=== PATIENT | female | born 1965 | race Caucasian/White ===

== ENCOUNTER 2017-12-25 08:17 | Inpatient (IN) | payer BC, OTHER ==
[~2017-12-25] VITALS: Ht 184.8 cm; Wt 106.1 kg
[2017-12-25] MEDS ORDERED: KETOROLAC TROMETHAMINE 30 MG/ML VIAL IV STA (08:38)
[2017-12-25 08:47] LABS: BASOPHILS # (AUTO) 0.1 (0.0-0.1); BASOPHILS % 0.8 % (0.0-1.0); EOSINOPHILS # (AUTO) 0.2 (0.0-0.4); EOSINOPHILS % 2.6 % (0.0-6.0); HEMATOCRIT 41.9 % (34.2-44.1); HEMOGLOBIN 13.7 g/dL (12.0-16.0); LYMPHOCYTES # (AUTO) 1.9 (1.0-3.2); LYMPHOCYTES % 26.4 % (18.0-39.1); MEAN CORPUSCULAR HEMOGLOBIN 30.8 pg (28-32); MEAN CORPUSCULAR HGB CONC 32.7 g/dL (31-35); MEAN CORPUSCULAR VOLUME 94.2 fL (81-99); MONOCYTES # (AUTO) 0.4 (0.2-0.8); NEUTROPHILS # (AUTO) 4.8 (2.1-6.9); NEUTROPHILS % 64.8 % (38.7-80.0); PLATELET COUNT 248 x10e3/uL (140-360); RED BLOOD COUNT 4.45 x10e6/uL (3.6-5.1); RED CELL DISTRIBUTION WIDTH 13.2 % (11.7-14.4)
[2017-12-25 08:53] LABS: CLARITY,URINE SL CLOUDY (CLEAR); COLOR,URINE YELLOW (YELLOW); LEUKOCYTE ESTERASE ,URINE NEGATIVE (NEGATIVE); NITRITE,URINE NEGATIVE (NEGATIVE); PROTEIN,URINE DIPSTICK NEGATIVE (NEGATIVE)
[2017-12-25 08:54] LABS: BILIRUBIN,URINE NEGATIVE (NEGATIVE); KETONES,URINE NEGATIVE (NEGATIVE); URINE UROBILINOGEN 0.2 mg/dL (0.2 - 1)
[2017-12-25 09:00] LABS: ALANINE AMINOTRANSFERASE 24 IU/L (0-55); ALBUMIN 3.7 g/dL (3.5-5.0); ALKALINE PHOSPHATASE 73 IU/L (40-150); AMYLASE 117 U/L (25-125); BLOOD UREA NITROGEN 11 mg/dL (7-26); BUN/CREATININE RATIO 15 (6-25); CALCIUM 9.1 mg/dL (8.4-10.2); CARBON DIOXIDE 27 mmol/L (22-29); CHLORIDE 103 mmol/L (98-107); CREATINE KINASE 144 IU/L (29-168); CREATININE, SERUM 0.75 mg/dL (0.57-1.11); EST GLOMERULAR FILTRATION RATE > 60 ML/MIN (60-); GLUCOSE 99 mg/dL (74-118); LIPASE 243 U/L (8-78); RBC,URINE 0-5 /HPF (0-5); SODIUM 136 mmol/L (136-145); WBC,URINE (MAN) 0-5 /HPF (0-5)
[2017-12-25 09:01] LABS: EPITHELIAL CELLS,URINE MANY /LPF
[2017-12-25] MEDS: ONDANSETRON HCL INJ 2 MG/ML VIAL IV STA ×2 (09:09→09:38)
[2017-12-25] MEDS ORDERED: HYDROMORPHONE 1MG/1ML INJ IV SCH (09:20)
[2017-12-25] MEDS ORDERED: DIATRIZOATE MEGL/DIATRIZOA SOD 30 ML BTL PO ONE (09:47)
[2017-12-25] MEDS ORDERED: SODIUM CHLORIDE 0.9% 50ML 50 ML ONE (11:08)
[2017-12-25] MEDS ORDERED: IOPAMIDOL 370 MG/ML 200 ML INFUS..BTL INJ ONE (11:08)
[2017-12-25] MEDS ORDERED: D5.45%NS/KCL 20MEQ 1,000 ML IV SCH (11:18)
[2017-12-25] MEDS ORDERED: ONDANSETRON HCL INJ 2 MG/ML VIAL IV PRN ×2 (11:30→18:00)
[2017-12-25] MEDS ORDERED: HYDROMORPHONE 1MG/1ML INJ IV PRN (11:30)
--- NOTE | 2017-12-25 11:37 | Diagnostic Imaging Report ---
EXAM: CT Abdomen and Pelvis WITH contrast INDICATION: Pain COMPARISON: None. TECHNIQUE: Abdomen and Pelvis was scanned utilizing a multidetector helical scanner after administration of IV contrast. Coronal and sagittal reformations were obtained. IV CONTRAST: 100 mL Isovue-370 COMPLICATIONS: None RADIATION DOSE: Total DLP:854 mGy*cm Estimated effective dose: (DLP x 0.015 x size factor) mSv CTDIvol has been reviewed. It is below the limits set by the Radiation Protocol Committee (RPC). FINDINGS: Abdomen: Lung Bases: No acute findings. Solid Organs: Liver, adrenals, kidneys, and spleen unremarkable. Pancreas normally enhances. Calcifications are present within the pancreatic head, not further localized. No peripancreatic fluid collection. Upper GI Tract: Mild inflammation present about the second and third portion of the duodenum/pancreatic head. Vascularity: No aortic aneurysm. Lymph Nodes: No suspicious adenopathy. Other: None. Pelvis: Bladder: Unremarkable. Other: Within limitations of CT, uterus/adnexa unremarkable. Colon: Diverticula sigmoid colon without CT evidence of diverticulitis. Bones: No acute findings. IMPRESSION: 1. Inflammatory changes in the region of the pancreatic head and second/third portions of the duodenum. Pancreatitis or duodenitis could have this appearance. Clinical and laboratory correlation recommended. 2. Calcifications pancreatic head, with no comparisons. While findings may simply represent dystrophic calcifications, choledocholithiasis not excluded. Clinical and laboratory correlation for biliary obstruction recommended. 3. Other findings as above. Signed by: Dr. Kirk Tavares MD on 12/25/2017 11:33 AM
--- OUTSIDE RECORDS SUMMARY | 2017-12-25 11:44 | XMS REPORT ---
Author Author [facility] Address Unknown Phone Unavailable Care Team Providers Care Transformation Architect Name Role Phone RENATO FARMER Unavailable Unavailable Problems This patient has no known problems. Allergies, Adverse Reactions, Alerts This patient has no known allergies or adverse reactions. Medications This patient has no known medications. Results Test Description Test Time Test Comments Text Results Atomic Results Result Comments CT ABDOMEN/PELVIS W [place] [address] Patient Name: CHARLES GOLDMAN MR #: [id number] : 1965 Age/Sex: 52/F Req # : [id number] Adm Physician: Ordered by: RENATO FARMER MD Report #: [id number] Location: ER Room/Bed: Procedure: [id number] CT/CT ABDOMEN/PELVIS W Exam Date: 12/25/17 Exam Time : 1113 REPORT STATUS: Signed EXAM: CT Abdomen and Pelvis WITH contrast INDICATION: Pain COMPARISON: None. TECHNIQUE: Abdomen and Pelvis was scanned utilizing a multidetector helical scanner after administration of IV contrast. Coronal and sagittal reformations were obtained. IV CONTRAST: 100 mL Isovue-370 COMPLICATIONS: None RADIATION DOSE: Total DLP:854 mGy*cm Estimated effective dose: (DLP x 0.015 x size factor) mSv CTDIvol has been reviewed. It is below the limits set by the Radiation Protocol Committee (RPC). FINDINGS: Abdomen: Lung Bases: No acute findings. Solid Organs: Liver, adrenals, kidneys, and spleen unremarkable. Pancreas normally enhances. Calcifications are present within the pancreatic head, not further localized. No peripancreatic fluid collection. Upper GI Tract: Mild inflammation present about the second and third portion of the duodenum/ pancreatic head. Vascularity: No aortic aneurysm. Lymph Nodes: No suspicious adenopathy. Other: None. Pelvis: Bladder: Unremarkable. Other: Within limitations of CT, uterus/adnexa unremarkable. Colon: Diverticula sigmoid colon without CT evidence of diverticulitis. Bones: No acute findings. IMPRESSION: 1. Inflammatory changes in the region of the pancreatic head and second/third portions of the duodenum. Pancreatitis or duodenitis could have this appearance. Clinical and laboratory correlation recommended. 2. Calcifications pancreatic head, with no comparisons. While findings may simply represent dystrophic calcifications, choledocholithiasis not excluded. Clinical and laboratory correlation for biliary obstruction recommended. 3. Other findings as above. Signed by: Dr. Kirk Johnson MD on 12/25/2017 11:33 AM Dictated By: KIRK JOHNSON MD 1133 Transcribed By: AMBER on 12/25/17 1133 COPY TO: RENATO FARMER MD
--- OUTSIDE RECORDS SUMMARY | 2017-12-25 11:44 | XMS REPORT | Clinical Summary ---
Author Author [facility] Address Unknown Phone Unavailable Care Team Providers Care Client Service Consultant Name Role Phone Feliz Griffin MD PCP Allergies Not on File Current Medications Not on file Active Problems Not on file Encounters Date Type Specialty Care Team Description 11/11/2017 Transcribe Access Catarino Bey MD Screening breast Orders examination (Primary Dx) after 12/24/2016 Social History Tobacco Use Types Packs/Day Years Used Date Never Assessed Sex Assigned at Date Recorded Not on file Last Filed Vital Signs Not on file Plan of Treatment Date Type Specialty Care Team Description 12/30/2017 Appointment Radiology Catarino Bey MD [address] [id number] Health Maintenance Due Date Last Done Comments PAP SMEAR 1984 COLONOSCOPY 2013 INFLUENZA VACCINE 04/12/2018 MAMMOGRAM 12/21/2018 12/21/2016, 12/19/2015, 12/18/2014, Additional history exists Results Not on fileafter 12/24/2016 Insurance Payer Benefit Subscriber ID Type Phone Address Plan / Group CIG[employer] CIGNA xxxxxxxxx HMO/PPO [id number] Work: [id number] [place], [place] Home: [phone]
--- NOTE | 2017-12-25 11:53 | Consultation ---
DATE OF CONSULTATION: December 25, 2017 GASTROENTEROLOGY CONSULTATION HISTORY OF PRESENT ILLNESS: This is a 52-year-old who is very well known to me, who called me earlier today because of sudden onset of significant or severe abdominal pain. Patient also has some diarrhea along with the problem. She denies any nausea or vomiting with this problem, and her workup so far revealed that her CBC was okay. Her chemistry, however, showed the lipase is 243. She denies any history of alcohol use. OTHER MEDICAL PROBLEMS: Otherwise really unremarkable. ALLERGIES: NONE. SOCIAL HISTORY: Denies any alcohol use. FAMILY HISTORY: Noncontributory. REVIEW OF SYSTEMS: Denies any chest pain. No shortness of breath. Denies any dysphagia or odynophagia. Denies any dysuria, hematuria, or any kind of syncopal episode. PHYSICAL EXAMINATION GENERAL: The patient is awake, alert, appears to be stable. Not in acute distress at this point. VITAL SIGNS: Afebrile currently with stable vital signs. HEAD, EYES, EARS, NOSE AND THROAT: Normocephalic and atraumatic. Sclera is anicteric. NECK: Supple. HEART: Exam is regular. LUNGS: Clear. ABDOMEN: Soft. There is tenderness in the epigastric area. There is no rebound or mass. EXTREMITIES: No cyanosis, no clubbing. LAB VALUES: Again, CBC is okay. Chemistry is okay except lipase was 243. IMPRESSION: Abdominal pain. Patient also has some diarrhea. at this point. Rule out possibility of pancreatitis. RECOMMENDATIONS: Keep n.p.o. IV fluid as well as pain control. Follow labs and clinically. Await CAT scan. Job#: [id number] EV cc:DAMASO SHEPPARD M.D.
[2017-12-25 14:21] VITALS: BP 125/67
[2017-12-25] MEDS ORDERED: LEVOTHYROXINE25 MCG PO (14:27)
[2017-12-25] MEDS ORDERED: AMITIZA24 MCG PO (14:27)
[2017-12-25] MEDS ORDERED: ULTRAM50 MG PO (14:27)
[2017-12-25] MEDS ORDERED: ACETAMINOPHEN 325 MG TAB PO PRN (15:30)
[2017-12-25] MEDS: ENOXAPARIN SOD INJ 40 MG/0.4 ML SYR SC SCH (16:05)
[2017-12-25] MEDS: D5NS/KCL 20MEQ 1,000 ML IV SCH (17:26)
[2017-12-25 19:37] VITALS: BP 125/67
--- NOTE | 2017-12-25 19:56 | Diagnostic Imaging Report ---
EXAM: US GALLBLADDER INDICATION: Acute pancreatitis COMPARISON: None TECHNIQUE: Transverse and longitudinal sonographic images of the right upper abdomen were obtained. FINDINGS: LIVER: 17 cm in the right midclavicular line. Increased echogenicity, normal contour, no masses. Main Portal Vein: Normal size with hepatopetal flow. GALLBLADDER: No stones, sludge, wall-thickening or pericholecystic fluid. Negative sonographic Fletcher's sign. BILE DUCTS: No intra nor extra-hepatic dilation. Common bile duct measures 1.1 cm. PANCREAS: Visualized portions are normal. RIGHT KIDNEY: 13.3 x 4.6 x 5 cm in length Echogenicity: Normal Collecting System: No hydronephrosis Stones: None Cyst/Mass: None FREE FLUID: None in the right upper quadrant of the abdomen IMPRESSION: 1. No cholelithiasis. 2. Mild hepatomegaly and mild hepatic steatosis. Signed by: Dr. Supriya Vo M.D. on 12/25/2017 7:52 PM
[2017-12-25 20:00] VITALS: BP 134/83
[2017-12-25 21:27] VITALS: BP 134/83
[2017-12-26] VITALS (7 sets, daily range): BP systolic 117–154; BP diastolic 70–89
[2017-12-26] MEDS: D5NS/KCL 20MEQ 1,000 ML IV SCH ×2 (01:15→06:24)
[2017-12-26 07:21] LABS: BASOPHILS % 0.4 % (0.0-1.0); EOSINOPHILS # (AUTO) 0.1 (0.0-0.4); HEMATOCRIT 38.9 % (34.2-44.1); HEMOGLOBIN 12.8 g/dL (12.0-16.0); LYMPHOCYTES # (AUTO) 1.6 (1.0-3.2); LYMPHOCYTES % 19.2 % (18.0-39.1); MEAN CORPUSCULAR HEMOGLOBIN 31.1 pg (28-32); MEAN CORPUSCULAR HGB CONC 32.9 g/dL (31-35); MEAN CORPUSCULAR VOLUME 94.6 fL (81-99); MONOCYTES # (AUTO) 0.5 (0.2-0.8); MONOCYTES % 5.8 % (4.4-11.3); NEUTROPHILS # (AUTO) 5.9 (2.1-6.9); NEUTROPHILS % 73.1 % (38.7-80.0); PLATELET COUNT 249 x10e3/uL (140-360); RED BLOOD COUNT 4.11 x10e6/uL (3.6-5.1); RED CELL DISTRIBUTION WIDTH 13.2 % (11.7-14.4)
[2017-12-26] MEDS: LEVOTHYROXINE SODIUM 25 MCG TABLET PO SCH (07:30)
[2017-12-26 07:54] LABS: ALANINE AMINOTRANSFERASE 21 IU/L (0-55); ALBUMIN 3.5 g/dL (3.5-5.0); ALKALINE PHOSPHATASE 65 IU/L (40-150); AMYLASE 70 U/L (25-125); ANION GAP 9.6 mmol/L (8-16); BLOOD UREA NITROGEN 8 mg/dL (7-26); BUN/CREATININE RATIO 11 (6-25); CALCIUM 8.9 mg/dL (8.4-10.2); CARBON DIOXIDE 27 mmol/L (22-29); CHLORIDE 104 mmol/L (98-107); CREATININE, SERUM 0.71 mg/dL (0.57-1.11); EST GLOMERULAR FILTRATION RATE > 60 ML/MIN (60-); GLUCOSE 94 mg/dL (74-118); LIPASE 91 U/L (8-78); POTASSIUM 3.6 mmol/L (3.5-5.1); SODIUM 137 mmol/L (136-145)
[2017-12-26] MEDS ORDERED: ACETAMINOPHEN 1000 MG/100 ML IV PRN (08:00)
--- NOTE | 2017-12-26 08:09 | History and Physical ---
CHIEF COMPLAINT: Abdominal pain. HPI: This is a 52-year-old female, morbidly obese with multiple GI history, who comes into the ED with complaints of epigastric abdominal pain that radiates straight through her back. She reports that the pain began yesterday after jogging. She went home and noticed that she had severe abdominal pain, and was trying to take Tylenol with no relief. Overnight, she continued to have significant abdominal pain and came into the ED for further evaluation. She has been having some decreased oral intake, some nausea. No vomiting but some diarrhea. On arrival here, imaging studies were consistent with acute pancreatitis, as well as elevated lipase levels. The patient was seen and evaluated at the bedside on the medical floor. Currently, doing well with no other issues. MRCP and right upper quadrant ultrasound has been ordered. GI has been consulted and already evaluated her. REVIEW OF SYSTEMS: Pertinent positives are epigastric abdominal pain that radiates through her back, nausea, decreased oral intake. Pertinent negatives: Denies any chest pain, palpitations, vomiting, dysuria, hematuria, frequency, urgency, lightheadedness, dizziness, headaches, shortness of breath, or any other complaints. The rest of the 14-point review of systems have been reviewed with the patient and are negative. ALLERGIES: NO KNOWN DRUG ALLERGIES. HOME MEDICATIONS: She is on: 1. Levothyroxine 25 mcg daily. 2. Amitiza 24 mcg p.o. b.i.d. 3. Tramadol 50 mg p.o. q.6 h. p.r.n. abdominal pain. PAST MEDICAL HISTORY: She has had hemorrhoids in the past. She has had chronic abdominal pain, irritable bowel syndrome, on medications. SURGICAL HISTORY: She had hemorrhoid surgery times 3. FAMILY HISTORY: Hypertension and diabetes. SOCIAL HISTORY: No drugs. No alcohol. Does not smoke. Currently working. PHYSICAL EXAMINATION VITAL SIGNS: Temperature is 98.4, pulse 55, respiratory rate 16, blood pressure 125/67, pulse ox 100% on room air. GENERAL: Not in acute distress. Alert and oriented times 3 and cooperative on exam. HEENT: Head is normocephalic and atraumatic. Eyes: Pupils equal, round and reactive to light bilaterally. Extraocular movements intact bilaterally. NECK: Supple. Good range of motion. Throat with no evidence of any erythema or airway disease in the posterior pharynx. Has poor dentition. PULMONARY: Clear to auscultation bilaterally. No wheezing. No rales. No rhonchi can be appreciated. CARDIOVASCULAR: S1 and S2. No murmurs, rubs or gallops. ABDOMEN: Soft. Tender to palpation in the epigastric region radiating through to her back. Positive bowel sounds. No rebound. No guarding. Tender to palpation on exam. MUSCULOSKELETAL: Strength is 5/5 throughout on musculoskeletal on examination. No weakness appreciated. NEUROLOGIC: Cranial nerves II-XII are grossly intact. No evidence of any neurologic deficit on exam. SKIN: Intact. Warm to touch. Good cap refill. PSYCHIATRIC: Normal affect and mood. EXTREMITIES: No edema. Good range of motion throughout. LAB FINDINGS: Show a white count of 7.3, hemoglobin 13.7, hematocrit 41.9, and platelets are 248,000. Chemistry: Sodium 136, potassium 4, chloride 103, bicarb 27, anion gap of 10, BUN 11, creatinine 0.75, calcium 9.1, glucose 99. LFTs were normal. Her troponin was negative. Total protein 7.5, albumin 3.7, lipase 243, amylase is 117. Urinalysis was negative. IMAGING STUDIES: CT of the abdomen and pelvis with IV contrast showed an impression of inflammatory changes in the region of the pancreatic head and 2nd and 3rd portions of the duodenum. Pancreatitis or duodenitis could have this appearance. There is some calcifications in the pancreatic head with no comparison. IMPRESSION 1. Acute pancreatitis: Etiology multifactorial. Could be secondary to choledocholithiasis. 2. Irritable bowel syndrome. 3. Abdominal pain. 4. Decreased oral intake. 5. Nausea, vomiting and dehydration. PLAN: At this time, keep the patient n.p.o. Pain control. IV fluids. Antinausea medications. CT of the abdomen and pelvis results above. MRCP and right upper quadrant ultrasound is pending. GI has been consulted and awaiting for further evaluation on imaging studies. Will resume her home medications that she takes at home. Otherwise, will continue with n.p.o., IV fluids and pain control, and await for final recommendations based on imaging studies. Job#: [id number] ID
[2017-12-26] MEDS: PANTOPRAZOLE 40 MG 10ML VIAL IV SCH (08:50)
--- NOTE | 2017-12-26 12:18 | Diagnostic Imaging Report ---
PROCEDURE: MRCP WITHOUT CONTRAST TECHNIQUE: Multisequence multiplanar MRI and MRCP images were obtained of the upper abdomen without IV contrast. COMPARISON: CT and ultrasound 12/25/2017 INDICATIONS: Abdomen pain FINDINGS: LACK OF GADOLINIUM DECREASES SENSITIVITY FOR DETECTION OF INTRA-ABDOMINAL PATHOLOGY. LIVER: Signal loss on the [id number] images compatible with hepatic steatosis. Liver is mildly enlarged measuring 18.4 cm in length. No focal hepatic lesions. BILIARY: No ductal dilatation or filling defect. PANCREAS: Fatty infiltration/atrophy in the head. Previously noted peripancreatic stranding is not well visualized. No mass or ductal dilatation. A punctate T2 hypointense focus in the uncinate process likely corresponds to the calcifications on CT. These appear more medial than the CBD (best seen on coronal 2D FIESTA series 9 image 22) and thus likely within the parenchyma. SPLEEN: No splenomegaly. ADRENALS: No nodules. KIDNEYS: No hydronephrosis or mass in the imaged portion of the kidneys. PERITONEUM / RETROPERITONEUM: No upper abdominal free fluid. LYMPH NODES: No upper abdominal lymphadenopathy. VESSELS: Unremarkable. BONES AND SOFT TISSUES: Unremarkable. IMPRESSION: 1. No evidence of choledocholithiasis. Previously noted calcifications are likely dystrophic calcifications within the pancreatic parenchyma. 2. Hepatic steatosis and hepatomegaly. Dictated by: Royal Pfeiffer M.D. on 12/26/2017 at 12:19 Electronically approved by: Royal Pfeiffer M.D. on 12/26/2017 at 12:19
[2017-12-26] MEDS ORDERED: MORPHINE SULFATE 2 MG/ML SYR IV PRN (16:30)
[2017-12-26] MEDS ORDERED: MORPHINE SULFATE 4 MG/ML SYR IV PRN (16:30)
[2017-12-26] MEDS: ENOXAPARIN SOD INJ 40 MG/0.4 ML SYR SC SCH (17:19)
[2017-12-26] MEDS ORDERED: IBUPROFEN 600 MG TAB PO PRN (18:15)
[2017-12-26] MEDS: TRAMADOL HCL 50 MG TAB PO PRN (18:33)
[2017-12-26] MEDS ORDERED: ZOLPIDEM TARTRATE 10 MG TAB PO SCH (22:00)
[2017-12-27] VITALS: BP 112/59
[2017-12-27 01:21] VITALS: BP 112/59
[2017-12-27 04:00] VITALS: BP 144/70
[2017-12-27] MEDS: TRAMADOL HCL 50 MG TAB PO PRN (06:00)
[2017-12-27 06:50] LABS: BASOPHILS % 0.5 % (0.0-1.0); EOSINOPHILS # (AUTO) 0.1 (0.0-0.4); EOSINOPHILS % 1.8 % (0.0-6.0); HEMATOCRIT 38.8 % (34.2-44.1); HEMOGLOBIN 12.5 g/dL (12.0-16.0); LYMPHOCYTES # (AUTO) 1.4 (1.0-3.2); LYMPHOCYTES % 22.2 % (18.0-39.1); MEAN CORPUSCULAR HEMOGLOBIN 30.4 pg (28-32); MEAN CORPUSCULAR HGB CONC 32.2 g/dL (31-35); MEAN CORPUSCULAR VOLUME 94.4 fL (81-99); MONOCYTES # (AUTO) 0.4 (0.2-0.8); MONOCYTES % 5.7 % (4.4-11.3); NEUTROPHILS # (AUTO) 4.2 (2.1-6.9); NEUTROPHILS % 69.3 % (38.7-80.0); PLATELET COUNT 232 x10e3/uL (140-360); RED BLOOD COUNT 4.11 x10e6/uL (3.6-5.1)
[2017-12-27 07:17] LABS: ANION GAP 12.9 mmol/L (8-16); BLOOD UREA NITROGEN 8 mg/dL (7-26); BUN/CREATININE RATIO 11 (6-25); CALCIUM 9.2 mg/dL (8.4-10.2); CARBON DIOXIDE 26 mmol/L (22-29); CHLORIDE 106 mmol/L (98-107); CHOL/HDL RATIO 4.4 (3.0-3.6); CHOLESTEROL 167 MD/DL (0-199); CREATININE, SERUM 0.76 mg/dL (0.57-1.11); EST GLOMERULAR FILTRATION RATE > 60 ML/MIN (60-); GLUCOSE 98 mg/dL (74-118); HDL CHOLESTEROL 38 MG/DL (40-60); LDL CHOLESTEROL 95 MG/DL (60-130); LIPASE 86 U/L (8-78); POTASSIUM 3.9 mmol/L (3.5-5.1); SODIUM 141 mmol/L (136-145); TRIGLYCERIDES 171 MG/DL (0-149)
[2017-12-27 08:00] VITALS: BP 113/65
[2017-12-27] MEDS: PANTOPRAZOLE 40 MG 10ML VIAL IV SCH (08:05)
[2017-12-27] MEDS: LEVOTHYROXINE SODIUM 25 MCG TABLET PO SCH (08:05)
[2017-12-27 08:14] VITALS: BP 113/65
[2017-12-27 12:06] VITALS: BP 158/38
--- NOTE | 2017-12-27 16:29 | Discharge Summary ---
DISCHARGE DIAGNOSIS: 1. Acute pancreatitis. 2. Nausea, vomiting, dehydration--resolved. 3. History of irritable bowel syndrome. CONSULTANTS: GI. VITAL SIGNS: Temperature is 97.6, pulse 58, respiratory rate is 18, blood pressure 113/65, pulse ox 99% on room air. LAB FINDINGS: Show white count 6, hemoglobin of 12.5, hematocrit is 38, and platelets of 232. Chemistry: Sodium 141, potassium 3.9, chloride is 106, bicarb 26, BUN is 8, creatinine is 0.7, glucose 98. Hemoglobin A1c 5.1. Troponin is negative. Albumin was 3.5. Triglyceride is 171, LDL was 95, HDL 38. Lipase on admission 243 downtrended to 86, and amylase is 75. Urinalysis was negative. MICROBIOLOGY: None. IMAGING STUDIES: Right upper quadrant ultrasound showed no evidence of cholelithiasis. It showed some mild hepatomegaly and mild hepatic steatosis. Gallbladder was normal with no evidence of stones. CT abdomen and pelvis showed inflammation changes in the region of the pancreatic head, 2nd and 3rd portions of the duodenum. Pancreatitis with duodenitis it looks to be appearing. There are calcifications in the pancreatic head. MRCP, no evidence of choledocholithiasis. Previously noted calcifications are likely dystrophic palpitations within the pancreatic parenchyma and hepatic steatosis hepatomegaly. HOSPITAL COURSE: This is a 52-year-old female who came into the ED with complaints of abdominal pain acutely with nausea, vomiting, dehydration and decreased oral intake. Patient was found to have elevated lipase with imaging studies consistent with acute pancreatitis. GI was consulted. MRCP, CT abdomen and pelvis, as well as right upper quadrant ultrasound results described above. Patient was on IV fluids, pain control and n.p.o. initially, then started on a clear liquid diet advanced as tolerated. Patient improved throughout the hospital course with no other issues. Per GI, patient has been cleared for discharge home and needs to follow up with him in his office in the next 1 week for further evaluation and likely will need endoscopic ultrasound of the pancreas. On discharge the patient's pain is resolved, no more nausea, vomiting or dehydration. She is tolerating diet well. On the day of discharge, vital signs stable, labs reviewed and stable. Patient seen and evaluated, examined thoroughly on the day of discharge with no other complaints. Patient verbalized understanding and agrees with plan of care to follow up accordingly as an outpatient with the GI specialist in the next 1 to 2 weeks for further evaluation and PCP in 1 week. DISCHARGE MEDICATIONS: See med reconciliation form. DISPOSITION: To home. CONDITION: Stable. DIET: Heart-healthy. FOLLOWUP: With GI in the next 1 to 2 weeks for further evaluation of the pancreas with endoscopic ultrasound, PCP in 1 week. In the event of any worsening symptoms, patient advised to come back to the ED for further evaluation. Discharge summary took greater than 35 minutes. SOPHIE MELGAR MD Job#: [id number] MITZI
== END 2017-12-27 12:01 | disposition home or self-care (01) | DRG 440 ==
LOC: ER 08:19 → ERHOLD 11:41 → MED/SURG2 13:26
PROVIDERS: ADMIT Internal Medicine; ATTEND Internal Medicine
DX: K85.10 Biliary acute pancreatitis without necrosis or infection (principal); K76.0 Fatty (change of) liver, not elsewhere classified; E66.01 Morbid (severe) obesity due to excess calories; K58.9 Irritable bowel syndrome, unspecified; E86.0 Dehydration; Z68.31 Body mass index [BMI] 31.0-31.9, adult
CPT/HCPCS: 36415; 74177; 74181; 76705; 80048; 80053; 80061; 81001; 82150; 82550; 82553; 83036; 83690; 84484; 85025; 93005; 99284; J1170; J1650; J1885; J2405; Q9967

== ENCOUNTER 2018-01-02 21:10 | Emergency (ER) | payer OTHER ==
[~2018-01-02] VITALS: Ht 184.8 cm; Wt 106.1 kg
[~2018-01-02 21:10] MED LIST: AMITIZA24 MCG PO; LEVOTHYROXINE25 MCG PO; ULTRAM50 MG PO
--- OUTSIDE RECORDS SUMMARY | 2018-01-02 21:12 | XMS REPORT | Clinical Summary ---
Author Author [facility] Address Unknown Phone Unavailable Care Team Providers Care Clinical Educator Name Role Phone Feliz Griffin MD PCP Allergies Not on File Current Medications Not on file Active Problems Not on file Encounters Date Type Specialty Care Team Description 12/30/2017 Hospital Radiology Catarino Bey MD Screening breast Encounter examination 11/11/2017 Transcribe Access Catarino Bey MD Screening breast Orders examination (Primary Dx) after 01/01/2017 Social History Tobacco Use Types Packs/Day Years Used Date Never Assessed Sex Assigned at Date Recorded Not on file Last Filed Vital Signs Not on file Plan of Treatment Health Maintenance Due Date Last Done Comments PAP SMEAR 1984 COLONOSCOPY 2013 INFLUENZA VACCINE 04/12/2018 MAMMOGRAM 12/21/2018 12/21/2016, 12/19/2015, 12/18/2014, Additional history exists Results * Mammo Breast Screen Tomosynthesis Bilateral (12/30/2017 2:34 PM) Specimen Performing Laboratory [facility] [id number] [place] [address] Narrative PROCEDURE: MAMMO BREAST SCREEN TOMOSYNTHESIS BILATERAL Computer aided detection was utilized for the interpretation of the digital bilateral screening mammography with tomosynthesis. COMPARISON: 12/21/2016-12/17/2013 CLINICAL HISTORY: Screening mammogram.The patient has no current breast complaints. DENSITY: There are scattered areas of fibroglandular density. No significant masses, calcifications, or other findings are seen in either breast. There has been no significant interval change. IMPRESSION:No mammographic evidence of malignancy. RECOMMENDATION: Comparison with physical exam and annual screening mammography. BI-RADS 1:NEGATIVE This facility is accredited by the [employer] for Mammography. A negative x-ray report should not delay biopsy if a dominant or clinically suspicious mass is present.Not all cancers are identified by x-ray. DWS01 Procedure Note Hm Interface, Radiology Results Incoming - 01/02/2018 9:36 AM CDT PROCEDURE: MAMMO BREAST SCREEN TOMOSYNTHESIS BILATERAL Computer aided detection was utilized for the interpretation of the digital bilateral screening mammography with tomosynthesis. COMPARISON: 12/21/2016-12/17/2013 CLINICAL HISTORY: Screening mammogram.The patient has no current breast complaints. DENSITY: There are scattered areas of fibroglandular density. No significant masses, calcifications, or other findings are seen in either breast. There has been no significant interval change. IMPRESSION: No mammographic evidence of malignancy. RECOMMENDATION: Comparison with physical exam and annual screening mammography. BI-RADS 1: NEGATIVE This facility is accredited by the [employer] for Mammography. A negative x-ray report should not delay biopsy if a dominant or clinically suspicious mass is present. Not all cancers are identified by x-ray. DWS01 after 01/01/2017 Insurance Payer Benefit Subscriber ID Type Phone Address Plan / Group ZION DONOVAN xxxxxxxxx HMO/PPO [facility] Work: [id number] [place], [place] Home: [phone]
--- OUTSIDE RECORDS SUMMARY | 2018-01-02 21:12 | XMS REPORT | Continuity of Care Document ---
Author Author [facility] Organization [facility] Address [address] [place] [address] Phone Unavailable Care Team Providers Care Sap Hana Developer Name Role Phone DAMASO SHEPPARD PCP Insurance Providers Guarantor JesusMaría Elena Address [address] [place] [address] Email [email or web address] [facility] Policy Number [id number] Subscriber's Name María Elena Goldman Relationship 18 Self / Same As Patient Group Number [id number] Group Name Claim MapsElizabeth Effective Date 08 Advance Directives Directive Response Recorded Date/Time Does the patient have an advance directive? No 12/25/17 2:14pm If yes, is advance directive on file with [facility]? No 12/25/17 2:14pm If not on file with [facility] will patient provide a copy? No 12/25/17 2:14pm Do you have a Directive to Physician? No 12/25/17 9:35am Do you have a Medical Power of Equities Trader? No 12/25/17 9:35am Do you have an out of hospital Do Not Resuscitate Order? No 12/25/17 9:35am Do you have any special needs we should be aware of? No 12/25/17 9:35am Do you have a support person here with you today? Yes 12/25/17 9:35am Did patient receive Notice of Privacy Practices? Yes 12/25/17 9:35am Did patient receive patient rights and responsibilities? Yes 12/25/17 9:35am Problems No problem information available. Medications Current Home Medications Medication Dose Units Route Directions Days Qty Instructions Start Date Levothyroxine Sodium 25 Mcg Tablet 25 Mcg Oral Daily Lubiprostone (Amitiza) 24 Mcg Capsule 24 Mcg Oral Twice A Day 60 Cap Tramadol Hcl (Ultram) 50 Mg Tablet 50 Mg Oral Every 6 Hours as needed for Pain Social History Social History Problem Response Recorded Date/Time Onset Date Status Hx Psychiatric Problems No 12/25/2017 2:14pm Not Applicable Not Applicable Hx Eating Disorder No 12/25/2017 2:14pm Not Applicable Not Applicable Hx Substance Use Disorder No 12/25/2017 2:14pm Not Applicable Not Applicable Hx Depression Yes 12/25/2017 2:14pm Not Applicable Not Applicable Hx Alcohol Use No 12/25/2017 2:14pm Not Applicable Not Applicable Hx Substance Use Treatment No 12/25/2017 2:14pm Not Applicable Not Applicable Hx Physical Abuse No 12/25/2017 2:14pm Not Applicable Not Applicable Smoking Status Start Date Stop Date Never Smoker Hospital Discharge Instructions No hospital discharge instruction information available. Plan of Care Discharge Date 12/27/17 12:01pm Disposition HOME, SELF-CARE Instructions/Education Provided Abdominal Pain - Adult Prescriptions See Medication Section Additional Instructions/Education F/U W/ PCP IN 1WK GI IN 1-2WKS Functional Status Query Response Date Recorded Assistive Devices None December 25, 2017 2:21pm Ambulation Ability Independent December 25, 2017 2:21pm Toileting Ability Independent December 26, 2017 6:31pm Allergies, Adverse Reactions, Alerts No known allergies. Immunizations No immunization information available. Vital Signs Acute Vital Signs Vital Response Date/Time Temperature (Fahrenheit) 97.4 degrees F (97.6 - 99.5) 12/27/2017 12:06pm Pulse Pulse Rate (adult) 57 bpm (60 - 90) 12/27/2017 12:06pm Respiratory Rate 20 bpm (12 - 24) 12/27/2017 12:06pm Blood Pressure 158/38 mm Hg 12/27/2017 12:06pm Height 6 ft 0.75 in 12/25/2017 8:21am Weight 234 lb 12/25/2017 8:21am Body Mass Index 31.1 kg/m^2 12/25/2017 2:14pm Results Laboratory Results Test Name Result Units Flags Reference Collection Date/Time Result Date/ Time Comments White Blood Count 6.09 x10e3/uL 4.8-10.8 12/27/2017 6:04am 12/27/2017 6 :53am Red Blood Count 4.11 x10e6/uL 3.6-5.1 12/27/2017 6:04am 12/27/2017 6: 53am Hemoglobin 12.5 g/dL 12.0-16.0 12/27/2017 6:04am 12/27/2017 6:53am Hematocrit 38.8 % 34.2-44.1 12/27/2017 6:04am 12/27/2017 6:53am Mean Corpuscular Volume 94.4 fL 81-99 12/27/2017 6:04am 12/27/2017 6: 53am Mean Corpuscular Hemoglobin 30.4 pg 28-32 12/27/2017 6:04am 12/27/2017 6:53am Mean Corpuscular Hemoglobin Concent 32.2 g/dL 31-35 12/27/2017 6:04am 12/27/2017 6:53am Red Cell Distribution Width 13.0 % 11.7-14.4 12/27/2017 6:04am 2017 6:53am Platelet Count 232 x10e3/uL 140-360 12/27/2017 6:04am 12/27/2017 6: 53am Neutrophils (%) (Auto) 69.3 % 38.7-80.0 12/27/2017 6:04am 12/27/2017 6: 53am Lymphocytes (%) (Auto) 22.2 % 18.0-39.1 12/27/2017 6:04am 12/27/2017 6: 53am Monocytes (%) (Auto) 5.7 % 4.4-11.3 12/27/2017 6:04am 12/27/2017 6: 53am Eosinophils (%) (Auto) 1.8 % 0.0-6.0 12/27/2017 6:04am 12/27/2017 6: 53am Basophils (%) (Auto) 0.5 % 0.0-1.0 12/27/2017 6:04am 12/27/2017 6:53am IM GRANULOCYTES % 0.5 % 0.0-1.0 12/27/2017 6:04am 12/27/2017 6:53am Neutrophils # (Auto) 4.2 2.1-6.9 12/27/2017 6:04am 12/27/2017 6:53am Lymphocytes # (Auto) 1.4 1.0-3.2 12/27/2017 6:04am 12/27/2017 6:53am Monocytes # (Auto) 0.4 0.2-0.8 12/27/2017 6:04am 12/27/2017 6:53am Eosinophils # (Auto) 0.1 0.0-0.4 12/27/2017 6:04am 12/27/2017 6:53am Basophils # (Auto) 0.0 0.0-0.1 12/27/2017 6:04am 12/27/2017 6:53am Absolute Immature Granulocyte (auto 0.03 x10e3/uL 0-0.1 12/27/2017 6: 04am 12/27/2017 6:53am Urine Color YELLOW YELLOW 12/25/2017 8:20am 12/25/2017 8:54am Urine Clarity SL CLOUDY CLEAR 12/25/2017 8:20am 12/25/2017 8:54am Urine Specific [place] 1.020 1.010-1.025 12/25/2017 8:20am 2017 8:54am Urine pH 5 5 - 7 12/25/2017 8:20am 12/25/2017 8:54am Urine Leukocyte Esterase NEGATIVE NEGATIVE 12/25/2017 8:20am 2017 8:54am Urine Nitrite NEGATIVE NEGATIVE 12/25/2017 8:20am 12/25/2017 8:54am Urine Protein NEGATIVE NEGATIVE 12/25/2017 8:20am 12/25/2017 8:54am Urine Glucose (UA) NEGATIVE NEGATIVE 12/25/2017 8:20am 12/25/2017 8: 54am Urine Ketones NEGATIVE NEGATIVE 12/25/2017 8:20am 12/25/2017 8:54am Urine Urobilinogen 0.2 mg/dL 0.2 - 1 12/25/2017 8:20am 12/25/2017 8: 54am Urine Bilirubin NEGATIVE NEGATIVE 12/25/2017 8:20am 12/25/2017 8: 54am Urine Blood TRACE H NEGATIVE 12/25/2017 8:20am 12/25/2017 8:54am Urine WBC 0-5 /HPF 0-5 12/25/2017 8:20am 12/25/2017 9:01am Urine RBC 0-5 /HPF 0-5 12/25/2017 8:20am 12/25/2017 9:01am Urine Bacteria NONE /HPF NONE 12/25/2017 8:20am 12/25/2017 9:01am Urine Epithelial Cells MANY /LPF NONE 12/25/2017 8:20am 12/25/2017 9: 01am Sodium Level 141 mmol/L 136-145 12/27/2017 6:04am 12/27/2017 7:18am Potassium Level 3.9 mmol/L 3.5-5.1 12/27/2017 6:04am 12/27/2017 7:18am Chloride Level 106 mmol/L 98-107 12/27/2017 6:04am 12/27/2017 7:18am Carbon Dioxide Level 26 mmol/L 22-29 12/27/2017 6:04am 12/27/2017 7: 18am Anion Gap 12.9 mmol/L 8-12/27/2017 6:0412/27/2017 7:18am Blood Urea Nitrogen 8 mg/dL 7-12/27/2017 6:0412/27/2017 7:18am Creatinine 0.76 mg/dL 0.57-1.11 12/27/2017 6:0412/27/2017 7:18am BUN/Creatinine Ratio 11 6-12/27/2017 6:04am 12/27/2017 7:18am Estimat Glomerular Filtration Rate > 60 ML/MIN 60- 12/27/2017 6:04am 7:18am Ranges were taken from the National Kidney Disease Education Program and the National Kid[employer] Foundation literature. Reference ranges: 60 or greater: Normal 16-59 (for 3 consecutive months): Chronic kidney disease 15 or less: Kidney failure Glucose Level 98 mg/dL 74-118 12/27/2017 6:0412/27/2017 7:18am Calcium Level 9.2 mg/dL 8.4-10.2 12/27/2017 6:0412/27/2017 7:18am Hemoglobin A1c Percent 5.1 % 4.0-7.0 12/27/2017 6:12/27/2017 7: 18am Total Bilirubin 0.4 mg/dL 0.2-1.2 12/26/2017 6:1412/26/2017 7:59am Aspartate Amino Transf (AST/SGOT) 17 IU/L 5-34 12/26/2017 6:2017 7:59am Alanine Aminotransferase (ALT/SGPT) 21 IU/L 0-55 12/26/2017 6:14 7:59am Total Protein 7.1 g/dL 6.5-8.1 12/26/2017 6:12/26/2017 7:59am Albumin 3.5 g/dL 3.5-5.0 12/26/2017 6:1412/26/2017 7:59am Globulin 3.6 g/dL H 2.3-3.5 12/26/2017 6:12/26/2017 7:59am Albumin/Globulin Ratio 1.0 0.8-2.0 12/26/2017 6:1412/26/2017 7: 59am Alkaline Phosphatase 65 IU/L 40-150 12/26/2017 6:1412/26/2017 7: 59am Triglycerides Level 171 MG/DL H 0-149 12/27/2017 6:12/27/2017 7: 18am Cholesterol Level 167 MD/DL 0-199 12/27/2017 6:12/27/2017 7:18am Less than 200 mg/dL Low Risk 201 - 239 mg/dL Borderline Risk 240 mg/dl and greater High Risk LDL Cholesterol 95 MG/DL 60-130 12/27/2017 6:0412/27/2017 7:18am HDL Cholesterol 38 MG/DL L 40-60 12/27/2017 6:0412/27/2017 7:18am Cholesterol/HDL Ratio 4.4 H 3.0-3.6 12/27/2017 6:04am 12/27/2017 7: 18am Creatine Kinase 144 IU/L 29-168 12/25/2017 8:20am 12/25/2017 9:01am Creatine Kinase MB 2.00 ng/mL 0-5.0 12/25/2017 8:20am 12/25/2017 9: 07am Troponin I < 0.001 ng/mL 0-0.300 12/25/2017 8:20am 12/25/2017 9:07am Amylase Level 70 U/L 25-125 12/26/2017 6:14am 12/26/2017 7:59am Lipase 86 U/L H 8-78 12/27/2017 6:04am 12/27/2017 7:18am Procedures Procedure Status Date Provider(s) Computed tomography of abdomen and pelvis with contrast Active 12/25/17 RENATO FARMER MD US gallbladder Active 12/25/17 RENATO FARMER MD Magnetic resonance cholangiopancreatography (MRCP) without contrast Active RENATO FARMER MD Encounters Encounter Location Arrival/Admit Date Discharge/Depart Date Attending Provider Discharged Inpatient [facility] 12/25/17 11:41am 12:01pm SOPHIE MELGAR MD
[2018-01-02 22:07] LABS: BASOPHILS # (AUTO) 0.1 (0.0-0.1); BASOPHILS % 0.6 % (0.0-1.0); EOSINOPHILS # (AUTO) 0.2 (0.0-0.4); EOSINOPHILS % 2.1 % (0.0-6.0); HEMATOCRIT 39.7 % (34.2-44.1); HEMOGLOBIN 13.1 g/dL (12.0-16.0); LYMPHOCYTES # (AUTO) 2.5 (1.0-3.2); LYMPHOCYTES % 26.1 % (18.0-39.1); MEAN CORPUSCULAR HEMOGLOBIN 30.6 pg (28-32); MEAN CORPUSCULAR VOLUME 92.8 fL (81-99); MONOCYTES # (AUTO) 0.6 (0.2-0.8); MONOCYTES % 6.3 % (4.4-11.3); NEUTROPHILS # (AUTO) 6.1 (2.1-6.9); NEUTROPHILS % 64.7 % (38.7-80.0); PLATELET COUNT 257 x10e3/uL (140-360); RED BLOOD COUNT 4.28 x10e6/uL (3.6-5.1)
[2018-01-02 22:24] LABS: ALANINE AMINOTRANSFERASE 28 IU/L (0-55); ALBUMIN 3.9 g/dL (3.5-5.0); ALKALINE PHOSPHATASE 78 IU/L (40-150); ANION GAP 11.9 mmol/L (8-16); BLOOD UREA NITROGEN 12 mg/dL (7-26); BUN/CREATININE RATIO 16 (6-25); CALCIUM 9.6 mg/dL (8.4-10.2); CARBON DIOXIDE 26 mmol/L (22-29); CHLORIDE 104 mmol/L (98-107); CREATININE, SERUM 0.76 mg/dL (0.57-1.11); EST GLOMERULAR FILTRATION RATE > 60 ML/MIN (60-); GLUCOSE 104 mg/dL (74-118); POTASSIUM 3.9 mmol/L (3.5-5.1); SODIUM 138 mmol/L (136-145)
[2018-01-02 22:25] LABS: AMYLASE 88 U/L (25-125); LIPASE 172 U/L (8-78)
[2018-01-03 04:28] LABS: BILIRUBIN,URINE NEGATIVE (NEGATIVE); CLARITY,URINE CLEAR (CLEAR); COLOR,URINE YELLOW (YELLOW); KETONES,URINE NEGATIVE (NEGATIVE); LEUKOCYTE ESTERASE ,URINE NEGATIVE (NEGATIVE); NITRITE,URINE NEGATIVE (NEGATIVE); PROTEIN,URINE DIPSTICK NEGATIVE (NEGATIVE); URINE UROBILINOGEN 0.2 mg/dL (0.2 - 1)
[2018-01-03 04:41] LABS: BACTERIA,URINE RARE /HPF; EPITHELIAL CELLS,URINE FEW /LPF; RBC,URINE 0-5 /HPF (0-5)
== END 2018-01-03 01:51 | disposition home or self-care (01) ==
LOC: ER 21:10
DX: R10.13 Epigastric pain (principal)
CPT/HCPCS: 36415; 80053; 81001; 82150; 83690; 85025; 93005; 99284